=== PATIENT | male | born 1965 | race Caucasian/White ===

== ENCOUNTER 2021-08-11 10:21 | Outpatient (CLI) | payer OTHER, SELFPAY | END 2021-08-11 10:22 | disposition home or self-care (01) | LOC: RAD 10:33 | PROVIDERS: PCP Family Medicine; Visit Provider Urology | DX: N20.1 Calculus of ureter (principal) | CPT/HCPCS: 74018; 81003 ==

== ENCOUNTER 2021-08-16 07:20 | Day surgery (SDC) | payer OTHER, SELFPAY ==
[2021-08-13 08:10] VITALS: BMI 27.3
[2021-08-16] VITALS (7 sets, daily range): BP systolic 95–149; BP diastolic 68–92; PULSE 63–85; RESP 12–18; TEMP 36.1–36.8; O2SAT 92–100
--- NOTE | 2021-08-16 05:49 | W.PM.OPSUD ---
Surgery/Procedure H&P Update DATE OF PROCEDURE: August 16, 2021 DATE H&P PERFORMED: 08/11/21 H&P UPDATE INFORMATION: I have reviewed H&P completed within last 30 days, I have examined patient prior to procedure, No changes to prior documentation and H&P is in [facility] [place] EMR on date indicated CHANGES TO PREVIOUS DOCUMENTATION: KUB this morning showed no change in position. We will proceed as planned PLANNED PROCEDURE: Operation Date: 08/16/21 08:50 Proposed Procedures p LEFT EXTRACORPOREAL SHOCKWAVE LITHOTRIPSY POSSIBLE CYSTOSCOPY STENT N20.9(Left) - Ant Tinoco MD s Cystoscopy(Not Applicable) - Ant Tinoco MD s Ureteral Stent Placement(Left) - Ant Tinoco MD
--- NOTE | 2021-08-16 07:47 | XR_ITS ---
WS: [id number] XR KUB [id number] REASON FOR EXAM: Left proximal ureteral stone with obstruction, refractory FINDINGS: Presumed proximal left ureteral calculus adjacent to the left transverse process of L2. This calculus appears slightly more superior in location than on the previous examination of 08/11/2021. Multiple small to intermediate calculi overlying the right kidney, unchanged compared to 08/11/2021. No other interval change compared to the previous examination. No acute abnormality. XR/XR KUB [id number] IMPRESSION: Urinary tract calculi as above.
[2021-08-16 08:33] LABS: Glucose Point of Care 138 mg/dL (70-110)
[2021-08-16] MEDS: sodium chloride 0.9% 1,000 ML 30 ML IV (08:38)
--- NOTE | 2021-08-16 08:46 | ANES.PREANE2 ---
Pre-Anesthetic Assessment Height/Weight: Height 1.83 m Weight 91.626 kg Temp Pulse Resp BP Pulse Ox 98.2 F 65 16 123/85 98 08/16/21 08:03 08/16/21 08:03 08/16/21 08:03 08/16/21 08:03 08/16/21 08:03 Preop Diagnosis: Refractory large left ureteral calculus Operation Date: 08/16/21 08:50 Proposed Procedures p LEFT EXTRACORPOREAL SHOCKWAVE LITHOTRIPSY POSSIBLE CYSTOSCOPY STENT N20.9(Left) - Ant Tinoco MD s Cystoscopy(Not Applicable) - Ant Tinoco MD s Ureteral Stent Placement(Left) - Ant Tinoco MD Familial anesthetic complications: None Was Beta Manfred taken within 24 hours: Yes Was Clonidine taken within 24 hours: N/A Last intake: Intake Last Liquid Date 08/15/21 Last Liquid Time 22:00 Last Solid Date 08/15/21 Last Solid Time 21:00 Social Tobacco and No alcohol Exam alert, oriented x 3, clear to auscultation bilaterally and regular rate & rhythm Airway Mallampati: Class III Dentition: chipped Pulmonary None reported CV/HEM Hypertension None reported Hepatic None reported GI None reported Metabolic Diabetes Mellitus and Hyperlipidemia [facility] [place] None reported Neuropsych None reported Anesthetic Plan ASA status: 3 Anesthesia: General Risk of > 500 ml blood loss (7ml/kg in children): No Medications/Allergies Home Medications Medication Instructions Recorded Confirmed Last Taken Type dulaglutide 0.75 mg/0.5 mL 0.75 mg SUBCUT .WEEKLY ml 08/11/21 08/16/21 08/13/21 History subcutaneous pen injector (Trulicity) glipizide 10 mg tablet 10 mg PO DAILY 08/11/21 08/16/21 08/15/21 07:00 History lisinopril 10 mg tablet 10 mg PO DAILY 08/11/21 08/16/21 08/15/21 History metformin 500 mg tablet 500 mg PO BID 08/11/21 08/16/21 08/15/21 07:00 History metoprolol tartrate 50 mg tablet 50 mg PO BID 08/11/21 08/16/21 08/16/21 06:00 History oxycodone-acetaminophen 5 mg-325 1 tab PO Q6H PRN 5 Days #20 tab 08/11/21 08/16/2108/14/22 Rx mg tablet (Percocet) simvastatin 10 mg tablet 10 mg PO DAILY 08/11/21 08/16/21 08/14/21 20:00 History pioglitazone 45 mg tablet 45 mg PO DAILY 08/13/21 08/16/21 08/15/21 07:00 History Allergies Allergy/AdvReac Type Severity Reaction Status Date / Time No Known Allergies Allergy Unverified 08/11/21 11:40 Current Medications Generic Name Dose Route Start Last Admin Trade Name Rhea PRN Reason Stop Dose Admin Sodium Chloride 1,000 mls @ 30 mls/hr 08/16/21 08:15 08/16/21 08:38 Sodium Chloride 0.9% IV 08/17/21 08:14 30 mls/hr .Q24H DINAH Administration PFSH Anesthesia Medical History (Updated 08/11/21 @ 12:53 by Ant Tinoco MD) Hyperlipidemia Left ureteral calculus Renal calculi Urolithiasis Multi stone former. Findings on CT scan show evidence of MSK. Multiple spontaneous stone passages. Surgical History H/O brain surgery Clot removed Family History Father , 76 Cancer lung Mother Thyroid condition Social History Smoking and tobacco status: current every day smoker smokeless tobacco Alcohol intake: current Alcohol intake frequency: holidays/special occasions only Marital status: Current occupational status: employed History of recent travel: No Data Anesthesia Cardiac Studies: No Data to Display
[2021-08-16] MEDS: levofloxacin-dextrose 5 % 500 MG/100 ML PREMIX 100 MG IV (09:30)
[2021-08-16] MEDS: iohexol 300 mg/mL 50 mL Btl (OR ONLY) XX (10:26)
--- NOTE | 2021-08-16 10:28 | PM.OP ---
Operative Report Date of procedure: August 16, 2021 Pre-op diagnosis: Refractory large left ureteral calculus Post-op diagnosis: Refractory large left ureteral calculus Procedure done: 1. Extracorporeal shockwave lithotripsy right ureteral calculus 2. Cystoscopy, RIGHT retrograde ureteropyelogram 3. RIGHT ureteral stent placement (6 Icelandic by 30 cm without string) Specimens removed/disposition: None Pathology: None Surgeon: Earnest Apartment [employer] Consultant: Lithotripsy telecommunications field technician: Denis Ramsey Anesthesia: General Estimated blood loss: None Urine output: Not measured Complications: None Findings: 3000 shocks administered. Some change but not dramatic. Stent placed at the completion of the procedure Brief History: Mr. Guadalupe is a very pleasant 55-year-old white male who I saw last week with recent diagnosis of a 9 mm left proximal ureteral stone with obstruction and severe symptoms. No evidence of infection. Reviewed options of continued conservative management with expectation of passage, treatment via endoscopy or ESWL. Ultimately he elected ESWL with or without stent. Procedure: After routine preoperative evaluation examination and obtaining of informed consent he was taken to the operating suite on 08/16/2021 where general anesthesia was administered without difficulty after appropriate timeout was performed, SCDs confirmed to be functioning, preoperative antibiotics administered, beta-abigail protocol confirmed. Positioned on the Dornier unit in supine position paying careful attention to avoiding pressure points. The shock head was positioned anteriorly. The stone was brought into the focal point utilizing biplanar fluoroscopy. It was easily defined and focused upon. Shockwave therapy was initiated at a rate of 70 and low intensity which was later advanced throughout the procedure to an intensity of 7. Change was not dramatic. A total of 3000 shocks were administered. It did appear that stone became less dense though. There was some Trendelenburg introduced but I could not see any proximal migration of any stone fragments. Based on the lack of dramatic change it was decided to leave a stent and after completion of 3000 shocks. Prepped and draped in usual sterile fashion in dorsolithotomy position paying careful attention to avoiding pressure points. 21 Icelandic cystoscope with 30 degree lens was introduced into the urethra meatus and advanced into the bladder without difficulty. An 8 Icelandic cone-tip catheter was intubated into the left ureteral orifice for LEFT RETROGRADE URETEROPYELOGRAM: The ureter appeared normal in its course and caliber. There was a filling defect in the proximal aspect of the ureter consistent with a stone. There did appear to be less bulk than previously noted. Contrast was easily manipulated proximal to the stone and there was some dilation but not severe. No other filling defects identified A flexible tip guidewire was then advanced easily up the left ureter bypassing the stone curling in the upper pole calyx and a 6 Icelandic by 30 cm double-pigtail stent was advanced over the guidewire through the cystoscope into appropriate position as confirmed via fluoroscopy and cystoscopy. The stent was confirmed to be draining. The procedure was completed after draining the bladder. He tolerated procedure well without complications and was awakened in the operating room and returned to the recovery room in stable condition PLANS: 1. Anticipate discharge from outpatient surgery 2. Follow-up in roughly 1 week with KUB, possible cystoscopy and stent removal. Based on the immediate assessment of change he may require additional therapy to completely clear the stone. If there is not much change in follow-up KUB I would recommend endoscopy given the fact that there was excellent focus directly upon the stone throughout the procedure.
[2021-08-16] MEDS: HYDROcodone-acetaminophen 5-325 mg Tablet 1 TAB PO (11:31)
--- NOTE | 2021-08-16 15:59 | ANE.PACU2 ---
Inpatient post-anesthesia follow up: Airway intact: Yes Vital signs: Temperature 97.6 F Pulse Rate 83 Respiratory Rate 18 Blood Pressure 133/79 Pulse Oximetry 97 Oxygen Delivery Me thod Room Air Oxygen Flow Rate 8 Fraction of Inspir ed Oxygen Hydration adequate: Yes Nausea and vomiting: No Pain level: 2 Mental status: Baseline
== END 2021-08-16 11:53 | disposition home or self-care (01) ==
PROVIDERS: PCP Family Medicine; Visit Provider Urology
PROC: (CPT 50590; principal; 2021-08-16 08:50)
PROC: 0TJB8ZZ Inspection of Bladder, Via Natural or Artificial Opening Endoscopic (ICD-10-PCS; CPT 52000; 2021-08-16 08:50)
PROC: (CPT 50605; 2021-08-16 08:50)
PROC: (CPT 74420; 2021-08-16 08:50)
DX: N20.1 Calculus of ureter (principal); E11.9 Type 2 diabetes mellitus without complications; E78.5 Hyperlipidemia, unspecified; F17.290 Nicotine dependence, other tobacco product, uncomplicated; Z79.84 Long term (current) use of oral hypoglycemic drugs
CPT/HCPCS: 50590; 52332; 36416; 74018; 82962; C2625; J1100; J1956; J2405; J2704; J2710; J3010; J3490; J7030

== ENCOUNTER 2021-08-24 09:05 | Outpatient (CLI) | payer OTHER, SELFPAY ==
--- NOTE | 2021-08-24 09:16 | XRR_ITS ---
PROCEDURE INFORMATION: Exam: XR Abdomen Exam date and time: 08/24/2021 9:19 AM Age: 55 years old Clinical indication: Condition or disease; Kidney or ureter condition; Calculus (stone) in kidney; Patient HX: HX kidney stone f/u left side; Additional info: Urolithiasis, kub @ [facility] on 08/24/21 @ 0845. Appt to follow TECHNIQUE: Imaging protocol: Radiologic exam of the abdomen. Views: Frontal supine view of the abdomen. 1 View. COMPARISON: 1. CT Abdomen/Pelvis Renal [id number] 08/09/2021 8:06 PM 2. CR XR KUB [id number] 08/16/2021 7:56 AM FINDINGS: Tubes, catheters and devices: Left-sided nephroureteral stent noted with the proximal tip coiled in the region of the ureteropelvic junction adjacent to the previously noted stone. The distal tip is coiled within the region of the urinary bladder. Gastrointestinal tract: No abnormally dilated air-filled bowel loops identified. Vasculature: Vascular phleboliths noted. Bones/joints: Unremarkable. Other findings: 8 mm stone overlying the region of the left ureteropelvic junction. Small calcifications overlying the right kidney likely consistent with nephrolithiasis. XR/XR KUB [id number] IMPRESSION: 1. Bilateral nephrolithiasis. 2. 8 mm stone overlying the region of the left ureteropelvic junction. Left-sided double-J ureteral stent in appropriate position.
== END 2021-08-24 09:06 | disposition home or self-care (01) ==
LOC: RAD 09:07
PROVIDERS: PCP Family Medicine; Visit Provider Urology
DX: N20.9 Urinary calculus, unspecified (principal)
CPT/HCPCS: 74018; 81003

== ENCOUNTER 2021-08-25 08:33 | Day surgery (SDC) | payer OTHER, SELFPAY ==
[2021-08-24 16:20] VITALS: BMI 27.3
[2021-08-25] VITALS (10 sets, daily range): BP systolic 106–134; BP diastolic 71–93; PULSE 70–96; RESP 16–18; TEMP 36.2–36.6; O2SAT 94–99
--- NOTE | 2021-08-25 | SCC_ITS ---
Procedure done: 1. Cystoscopy removal of left ureteral stent 2. Left ureteroscopy, laser lithotripsy, stent 43.0 seconds of fluoroscopic guidance, for a cumulative dose of 9.70 mGy, was provided to Dr. Tinoco by the radiology department. C-arm images of the abdomen were saved for the patient's permanent record. [facility]
--- NOTE | 2021-08-25 06:08 | P.HPUD_ITS ---
Surgery/Procedure H&P Update DATE OF PROCEDURE: August 25, 2021 DATE H&P PERFORMED: 08/24/21 H&P UPDATE INFORMATION: I have reviewed H&P completed within last 30 days, I have examined patient prior to procedure, No changes to prior documentation and H&P is in [facility] [place] on date indicated PREOP DIAGNOSIS: Refractory large left ureteral calculus PLANNED PROCEDURE: Operation Date: 08/25/21 10:25 Proposed Procedures p cystoscopy, left: ureteroscopy, laser, possible stent exCHANGE [id number], 13363,N20.1(Not Applicable) - Ant Tinoco MD s Ureteroscopy(Left) - Ant Tinoco MD s Laser Lithotripsy(Left) - Ant Tinoco MD s Ureteral Stent Exchange(Left) - Ant Tinoco MD
--- NOTE | 2021-08-25 08:50 | XR_ITS ---
WS: [id number] KUB, AP view, 08/25/2021 Clinical Data: Preop left ureteroscopy Comparison: KUB, 08/24/2021 Findings: The left ureteral stent remains in good position.There is a 0.8 cm left proximal ureteral calculus li es adjacent to the proximal left ureteral stent. There may be calcifications over lying the right kid luzma but details obscured by colon gas and fecal material. XR/XR KUB [id number] Impression: 1. No change in left ureteral stent in proximal left ureteral calculus. 2. Probable right renal calculi.
--- NOTE | 2021-08-25 08:50 | SC_ITS ---
WS: [id number] C-arm fluoroscopy for left ureteral stent, 08/25/2021 Clinical Data: Left ureteroscopy Comparison: KUB, 08/25/2021 Findings: The left ureteral stent is in good position. The calculus noted on the KUB is difficult to see on the current examination. SC/C-arm FL for Urology Impression: Left ureteral stent.
[2021-08-25] MEDS: sodium chloride 0.9% 1,000 ML 30 ML IV (09:40)
[2021-08-25 09:44] LABS: Glucose Point of Care 144 mg/dL (70-110)
[2021-08-25] MEDS: levofloxacin-dextrose 5 % 500 MG/100 ML PREMIX 100 MG IV (11:08)
--- NOTE | 2021-08-25 11:18 | P.OP_ITS ---
Operative Report Date of procedure: August 25, 2021 Pre-op diagnosis: Refractory left UPJ stone Post-op diagnosis: Refractory left UPJ stone Procedure done: 1. Cystoscopy removal of left ureteral stent 2. Left ureteroscopy, laser lithotripsy, stent Implants: 4.5 Moldovan by 30 cm double-pigtail stent with string attached distally Specimens removed/disposition: Stone fragments/sand Pathology: Same Surgeon: Earnest Anesthesia: General Estimated blood loss: Minimal Urine output: Not measured Complications: None Findings: 1. Stone easily accessible 2. Completely fragmented with a 200 ?m thulium superpulse laser fiber into sand primarily and very small fragments 3. Stent left indwelling as above Brief History: Mr. Guadalupe is a very pleasant 55-year-old white male recently diagnosed with obstructing left UPJ stone. Last week he underwent ESWL to the stone without dramatic change. On follow-up KUB yesterday the stone had some change noted but not enough for the fragments that remain to pass. Unfortunately he was tolerating the stent very poorly. He was offered the option of waiting with serial imaging versus endoscopic treatment for the residual stone fragment. He elected the latter Procedure: After routine preoperative evaluation examination and obtaining of informed consent he was taken to the operating suite on 08/25/2021 where general anesthesia was administered without difficulty after appropriate timeout was performed, SCDs confirmed to be functioning, preoperative antibiotics administered, beta- abigail protocol confirmed. Prepped and draped in usual sterile fashion dorsolithotomy position paying careful attention to avoiding pressure points. 21 Moldovan cystoscope with 30 degree lens was introduced into the urethra meatus and advanced into the bladder under videoscopy. Bladder was systematically examined. Stent was in the appropriate position. Flexible tip guidewire advanced up the left ureter next to the stent and the stent was then removed easily with grasping forceps. The stone migrated approximately 1.5 to 2 cm distally from the left UPJ with the stent removal. A second guidewire was then passed after the first wire was secured to the drapes as a safety wire. 38 cm ureteral access sheath was advanced over the guidewire without difficulty easily up the left ureter to just below the UPJ. The inner sheath was removed. A 7 Moldovan flexible ureteroscope was then advanced through the sheath easily up the left ureter into the proximal aspect of the ureter where the stone was encountered. It migrated into the renal pelvis and then was fragmented with a 200 ?m thulium superpulse laser fiber into mostly sand and some very very small particles. A lot of the sand was flushed through the eath and collected and sent to pathology. Final inspection of the calyceal system revealed no substantial fragments. There were some adherent small stones to at least 1 papilla that were fragmented with the laser fiber as well. Hemostasis was visually confirmed. The sheath was then backed out onto the hub of the scope and the ureter was carefully inspected as the scope was removed. There was some mild inflammation where the stone had been originally located and appeared to have been somewhat adherent to the mucosa. That reason it was decided to leave a small stent indwelling. Cystoscope was then backloaded over the safety wire and a 4.5 Moldovan by 30 cm double-pigtail stent with a string attached distally was easily advanced over the guidewire through the cystoscope and appropriate position as confirmed via fluoroscopy and cystoscopy. The string was shortened somewhat. He tolerated procedure well without complications and was awakened in the operating room and returned to the recovery room in stable condition. PLANS: 1. Anticipate discharge from outpatient surgery 2. Reviewed with his that he could take the stent out with the string at the earliest on Monday of this week or if he is not bothered much by the stent then later in the weekend to get further passive dilation. 3. If the stent string retracts into the urethra and he cannot have access to it then we will make plans to do a cystoscopy and stent removal in my office on 08/30/2021.
[2021-08-25] MEDS: HYDROmorphone 1 mg/mL INJ 1 mL 0.5 MG IVP ×2 (12:45→13:03)
[2021-08-25] MEDS: oxyCODONE-APAP 5-325 mg Tablet 1 TAB PO (13:18)
--- NOTE | 2021-08-25 13:39 | ANES.PREANE2 ---
Pre-Anesthetic Assessment Height/Weight: Height 1.83 m Weight 91.626 kg Temp Pulse Resp BP Pulse Ox 97.2 F L 80 16 121/80 96 08/25/21 12:44 08/25/21 13:17 08/25/21 13:18 08/25/21 13:17 08/25/21 13:17 Preop Diagnosis: Refractory left UPJ stone Operation Date: 08/25/21 10:25 Proposed Procedures p cystoscopy, left: ureteroscopy, laser, possible stent exCHANGE [id number], 22023,N20.1(Not Applicable) - Ant Tinoco MD s Ureteroscopy(Left) - Ant Tinoco MD s Laser Lithotripsy(Left) - Ant Tinoco MD s Ureteral Stent Exchange(Left) - Ant Tinoco MD Familial anesthetic complications: None Was Beta Manfred taken within 24 hours: N/A Was Clonidine taken within 24 hours: N/A Last intake: Intake Last Liquid Date 08/24/21 Last Liquid Time 22:00 Last Solid Date 08/24/21 Last Solid Time 17:00 Social No alcohol and No tobacco Exam alert, oriented x 3, clear to auscultation bilaterally and regular rate & rhythm Airway Submandibular: within normal limits Cervical ROM: within normal limits Mallampati: Class II Dentition: chipped CV/HEM Hypertension Metabolic Diabetes Mellitus and Hyperlipidemia Anesthetic Plan ASA status: 2 Anesthesia: General Medications/Allergies Home Medications Medication Instructions Recorded Confirmed Last Taken Type dulaglutide 0.75 mg/0.5 mL 0.75 mg SUBCUT .WEEKLY ml 08/11/21 08/25/21 08/20/21 History subcutaneous pen injector (Trulicity) glipizide 10 mg tablet 10 mg PO DAILY 08/11/21 08/25/21 08/24/21 History lisinopril 10 mg tablet 10 mg PO DAILY 08/11/21 08/25/21 08/24/21 History metformin 500 mg tablet 500 mg PO BID 08/11/21 08/25/21 08/24/21 22:00 History metoprolol tartrate 50 mg tablet 50 mg PO BID 08/11/21 08/25/21 08/25/21 History simvastatin 10 mg tablet 10 mg PO DAILY 08/11/21 08/25/21 08/23/21 History pioglitazone 45 mg tablet (Actos) 45 mg PO DAILY 08/13/21 08/25/21 08/24/21 History oxycodone-acetaminophen 5 mg-325 1 tab PO Q6H #16 tab 08/25/21 Unknown Rx mg tablet (Percocet) Allergies Allergy/AdvReac Type Severity Reaction Status Date / Time No Known Allergies Allergy Unverified 08/25/21 09:20 PFS Anesthesia Medical History Hyperlipidemia Left ureteral calculus Renal calculi Urolithiasis Multi stone former. Findings on CT scan show evidence of MSK. Multiple spontaneous stone passages. Surgical History H/O brain surgery Clot removed History of lithotripsy S/P ureteral stent placement Family History Father , 76 Cancer lung Mother Thyroid condition Social History Smoking and tobacco status: current every day smoker smokeless tobacco Alcohol intake: current Alcohol intake frequency: holidays/special occasions only Marital status: Current occupational status: employed History of recent travel: No Data Anesthesia Cardiac Studies: No Data to Display
--- NOTE | 2021-08-25 16:32 | ANE.PACU2 ---
Inpatient post-anesthesia follow up: Airway intact: Yes Vital signs: Temperature 97.2 F Pulse Rate 80 Respiratory Rate 16 Blood Pressure 121/80 Pulse Oximetry 96 Oxygen Delivery Me thod Room Air Oxygen Flow Rate 5 Fraction of Inspir ed Oxygen Hydration adequate: Yes Nausea and vomiting: No Pain level: 4 Mental status: Baseline
[2021-08-30 02:32] LABS: Stone Source LEFT URETER
== END 2021-08-25 13:25 | disposition home or self-care (01) ==
PROVIDERS: PCP Family Medicine; Visit Provider Urology
PROC: 0TJB8ZZ Inspection of Bladder, Via Natural or Artificial Opening Endoscopic (ICD-10-PCS; CPT 52000; principal; 2021-08-25 10:15)
PROC: 0TJ98ZZ Inspection of Ureter, Via Natural or Artificial Opening Endoscopic (ICD-10-PCS; CPT 52351; 2021-08-25 10:15)
PROC: (CPT 52356; 2021-08-25 10:15)
PROC: (CPT 52356; 2021-08-25 10:15)
DX: N20.1 Calculus of ureter (principal); I10 Essential (primary) hypertension; E11.9 Type 2 diabetes mellitus without complications; E78.5 Hyperlipidemia, unspecified; F17.290 Nicotine dependence, other tobacco product, uncomplicated
CPT/HCPCS: 52356; 36416; 74018; 76000; 82365; 82962; 88300; C2625; J1100; J1170; J1956; J2405; J2704; J3010; J3490; J7030

== ENCOUNTER 2021-09-28 15:12 | Outpatient (CLI) | payer OTHER, SELFPAY ==
--- NOTE | 2021-09-28 15:00 | XR_ITS ---
WS: [id number] XR KUB [id number] REASON FOR EXAM: UROLITHIASIS FINDINGS: Multiple small bilateral renal calculi were identified on the previous CT scan of 08/27/2021. On this e xamination 2 of the right renal calculi are identified. Left renal calculi are not identifiable. No ureteral or bladder calculi are identified. Remainder of the abdomen and pelvis is unremarkable. XR/XR KUB [id number] IMPRESSION: Right renal calculi as above.
== END 2021-09-28 15:13 | disposition home or self-care (01) ==
LOC: RAD 15:13
PROVIDERS: PCP Family Medicine; Visit Provider Urology
DX: N20.0 Calculus of kidney (principal)
CPT/HCPCS: 74018

== ENCOUNTER 2022-04-07 12:37 | Outpatient (CLI) | payer OTHER, SELFPAY ==
--- NOTE | 2022-04-07 12:49 | XR_ITS ---
WS: [id number] KUB, AP view, 04/07/2022 Clinical Data: History of kidney stones. Comparison: KUB, 09/28/2021 Findings: No abnormal intraabdominal masses or calcifications are seen. There is no dilatated small bowel or ev idence of obstruction. The right kidney is obscured by overlying fecal material. XR/XR KUB [id number] Impression: Negative KUB.
== END 2022-04-07 12:38 | disposition home or self-care (01) ==
LOC: RAD 12:42
PROVIDERS: Visit Provider Urology
DX: N20.0 Calculus of kidney (principal)
CPT/HCPCS: 74018; 81003; 87077; 87086; 87186